=== PATIENT | female | born 1960 | race Caucasian/White ===

== ENCOUNTER 2017-10-01 13:02 | Emergency (ER) | payer OTHER ==
[2017-10-01 13:12] VITALS: BP 120/67; TEMP 99.3; BMI 20.9
[2017-10-01] MEDS ORDERED: ALBUTEROL SO4 2.5/IPRATROPIUM 0.5 INH SOL 3 ML VIAL.NEB. NEB ONE (14:18)
--- NOTE | 2017-10-01 14:20 | PDOC ---
Rapid Medical Evaluation Chief Complaint: Shortness of Breath Time Seen by Provider: 10/01/17 14:15 Medical Evaluation: Allergies Allergy/AdvReac Type Severity Reaction Status Date / Time No Known Allergies Allergy Verified 10/01/17 13:09 Vital Signs Temp Pulse Resp BP Pulse Ox 99.3 F 101 H 18 120/67 94 L 10/01/17 13:09 10/01/17 13:09 10/01/17 13:09 10/01/17 13:09 10/01/17 13:09 10/01/17 14:18 Pt. is a 57 y/o F who presents with two days of cough and shortness of breath and intermittent fevers for two days. Pt. states she usually gets pneumonia in the summer. Hx of relapsing remitting MS Exam: Fair aeration to the bases with course lung sounds on the right. ambulatory, afebrile Orders: Labs, CXR Pt. to proceed to main Ed for further evaluation Discharge Disposition - Discharge Dispostion Last Admission D/C Date: 02/12/15 - Referrals Referrals: Lucas Dominguez MD [Primary Care Provider] - - Patient Instructions - Post Discharge Activity
[2017-10-01 14:54] LABS: BASO % 0.4 % (0-2.0); EOS % 0.2 % (0-4.5); HEMATOCRIT 37.2 % (32.4-45.2); HEMOGLOBIN 12.3 GM/dL (10.7-15.3); LYMPH % 9.6 % (8-40); MCH 29.2 pg (25.7-33.7); MCHC 33.2 g/dl (32.0-36.0); MEAN CELL VOLUME 87.9 fl (80-96); MEAN PLT VOLUME 6.6 fl (7.5-11.1); NEUT % 83.8 % (42.8-82.8); PLATELET COUNT 257 K/MM3 (134-434); RBC 4.23 M/mm3 (3.60-5.2); RDW 13.2 % (11.6-15.6)
[2017-10-01 15:25] LABS: ALBUMIN 3.9 g/dl (3.4-5.0); ANION GAP 8 (8-16); BLOOD UREA NITROGEN 15 mg/dL (7-18); CALCIUM 8.6 mg/dL (8.5-10.1); CHLORIDE 104 mmol/L (98-107); CO2 26 mmol/L (21-32); CREATININE 0.7 mg/dL (0.55-1.02); GLUCOSE,RANDOM 105 mg/dL (74-106); POTASSIUM 4.3 mmol/L (3.5-5.1); SGOT/AST 18 U/L (15-37); SGPT/ALT 19 U/L (12-78); SODIUM 138 mmol/L (136-145)
[2017-10-01 15:26] LABS: ALK PHOS 70 U/L (45-117); BILIRUBIN,TOTAL 2.9 mg/dL (0.2-1.0); TOT PROT 7.2 g/dl (6.4-8.2)
[2017-10-01] MEDS ORDERED: ACETAMINOPHEN 325 MG TABLET (FP) PO ONE (15:46)
[2017-10-01] MEDS ORDERED: SODIUM CHLORIDE 1,000 ML IV STA (15:48)
[2017-10-01] MEDS ORDERED: ACETAMINOPHEN 325 MG TABLET (FP) ONE (16:16)
--- NOTE | 2017-10-01 16:21 | PDOC ---
Attending Attestation - Resident Resident Name: JohnathonLucas - ED Attending Attestation I have performed the following: I have examined & evaluated the patient, The case was reviewed & discussed with the resident, I agree w/resident's findings & plan - HPI HPI: 10/01/17 16:16 57y/o F MS p/w persistent cough/f/c in the setting of preceding URI. has h/o recurring pneumonia, no prior intubations/ICU admissions and often successfully treated as outpt. - Physicial Exam PE: 10/01/17 16:17 o2 97% on room air, HR 84 after tylenol extremely well appearing and comfortable, speaking full sentences, no tachypnea slightly decreased breath sounds R base, otherwise no wheeze or accessory muscle use. good air entry. heart regular, no edema ambulating comfortably without respiratory distress - Medical Decision Making 10/01/17 16:19 57y/o F MS with h/o pna p/w RLL pneumonia. well appearing, wbc 12, o2 sat wnl and VS otherwise normal. Despite her MS, she does not feel weak and is not fatiguing in her breathing whatsoever. She feels well, states this is her typical pna, and states she's been treated with outpt abx in the past under similar circumstances. no concerning findings mandating admission, will treat with levaquin course and prompt f/u with Dr. Dominguez
--- NOTE | 2017-10-01 16:40 | PDOC ---
History of Present Illness - General Chief Complaint: Shortness of Breath Stated Complaint: SOB Time Seen by Provider: 10/01/17 14:15 History Source: Patient Exam Limitations: No Limitations - History of Present Illness Initial Comments: 10/01/17 16:22 Patient is a 57F with history of MS (last on tecfidera one month ago) here today complaining of shortness of breath. She states that she had a cough, runny nose and irritated throat last week, then had a fever yesterday. Patient states that she has had pneumonia in the past with some requiring hospitalization, but no prior ICU stays or failures of outpatient treatment. Patient states that she's a little out of breath from baseline. Denies chest pain, vomiting. Past History - Past Medical History Allergies/Adverse Reactions: Allergies Allergy/AdvReac Type Severity Reaction Status Date / Time No Known Allergies Allergy Verified 10/01/17 13:09 Home Medications: Ambulatory Orders Dimethyl Fumarate [Tecfidera] 240 mg PO BID 02/10/15 Loratadine [Allergy Relief] 10 mg PO DAILY 02/10/15 Prednisone 10 mg PO DAILY 02/10/15 Cefuroxime Axetil [Ceftin] 500 mg PO BID #10 tablet 02/12/15 levoFLOXacin [Levaquin -] 750 mg PO DAILY #4 tablet 10/01/17 Anemia: No Asthma: No Cancer: No CVA: No COPD: No CHF: No HTN: No Other medical history: M.S - Surgical History Abdominal Surgery: Yes - Suicide/Smoking/Psychosocial Hx Smoking History: Never smoked Have you smoked in the past 12 months: No Information on smoking cessation initiated: No Hx Alcohol Use: No Drug/Substance Use Hx: No Substance Use Type: None Hx Substance Use Treatment: No Review of Systems - Review of Systems Comments:: 10/01/17 16:25 GENERAL/CONSTITUTIONAL: Positive for fever and chills. No weakness. HEAD, EYES, EARS, NOSE AND THROAT: No change in vision. No sore throat. CARDIOVASCULAR: No chest pain. Positive for shortness of breath RESPIRATORY: Positive for cough. Negative for wheezing, or hemoptysis. GASTROINTESTINAL: No nausea, vomiting, diarrhea or constipation. GENITOURINARY: No dysuria, frequency, or change in urination. MUSCULOSKELETAL: No joint or muscle swelling or pain. No neck or back pain. SKIN: No rash NEUROLOGIC: No headache, vertigo, loss of consciousness, or change in strength/ sensation. HEMATOLOGIC/LYMPHATIC: No anemia, easy bleeding, or history of blood clots. ALLERGIC/IMMUNOLOGIC: No hives or skin allergy. *Physical Exam - Vital Signs Last Vital Signs Temp Pulse Resp BP Pulse Ox 99.3 F 101 H 18 120/67 94 L 10/01/17 13:09 10/01/17 13:09 10/01/17 13:09 10/01/17 13:09 10/01/17 13:09 - Physical Exam Comments: 10/01/17 16:40 GENERAL: Awake, alert, and fully oriented, in no acute distress HEAD: No signs of trauma, normocephalic, atraumatic EYES: PERRLA, EOMI, sclera anicteric, conjunctiva clear ENT: Auricles normal inspection, hearing grossly normal, nares patent, oropharynx clear without exudates. Moist mucosa NECK: Normal ROM, supple, no lymphadenopathy, JVD, or masses LUNGS: No distress, speaks full sentences, +rhonchi in RLL HEART: Regular rate and rhythm, normal S1 and S2, no murmurs, rubs or gallops, peripheral pulses normal and equal bilaterally. ABDOMEN: Soft, nontender, normoactive bowel sounds. No guarding, no rebound. No masses EXTREMITIES: Normal inspection, Normal range of motion, no edema. No clubbing or cyanosis. NEUROLOGICAL: Cranial nerves II through XII grossly intact. Normal speech, normal gait, no focal sensorimotor deficits SKIN: Warm, Dry, normal turgor, no rashes or lesions noted. ED Treatment Course - LABORATORY CBC & Chemistry Diagram: 10/01/17 14:46 10/01/17 14:46 - ADDITIONAL ORDERS Additional order review: Laboratory Results 10/01/17 14:46 Sodium 138 Potassium 4.3 Chloride 104 Carbon Dioxide 26 Anion Gap 8 BUN 15 Creatinine 0.7 Creat Clearance w eGFR > 60 Random Glucose 105 Calcium 8.6 Total Bilirubin 2.9 H D AST 18 ALT 19 Alkaline Phosphatase 70 Total Protein 7.2 Albumin 3.9 10/01/17 14:46 RBC 4.23 MCV 87.9 MCHC 33.2 RDW 13.2 MPV 6.6 L Neutrophils % 83.8 H Lymphocytes % 9.6 D Monocytes % 6.0 Eosinophils % 0.2 Basophils % 0.4 - Medications Given in the ED: ED Medications Discontinued Medications Generic Name Dose Route Start Last Admin Trade Name Eldon PRN Reason Stop Dose Admin Acetaminophen 650 mg 10/01/17 15:46 10/01/17 16:17 Tylenol - PO 10/01/17 15:47 650 mg ONCE ONE Administration Albuterol/Ipratropium 1 amp 10/01/17 14:18 10/01/17 14:53 Duoneb - NEB 10/01/17 14:19 1 amp ONCE ONE Administration Medical Decision Making - Medical Decision Making 10/01/17 16:40 Patient is 57F with history of MS and prior PNA here today complaining of shortness of breath. Vital signs notable for mild tachycardia. Patient is not in any respiratory distress, sating 98% on room air. Patient endorses not eating much in the past. Patient is tolerating PO. CURB65 score is 0. Patient subjectively looks well. Dr Dominguez, PCP, contacted, close follow up arranged. Patient given IV fluid bolus. Will reassess HR and discharge. 10/01/17 16:54 Tachycardia resolved. Given levaquin. Return precautions given. *DC/Admit/Observation/Transfer Diagnosis at time of Disposition: Pneumonia - Discharge Dispostion Condition at time of disposition: Good Decision to Admit order: No - Prescriptions Prescriptions: levoFLOXacin [Levaquin -] 750 mg PO DAILY #4 tablet - Referrals Referrals: Lucas Dominguez MD [Primary Care Provider] - - Patient Instructions Printed Discharge Instructions: DI for Pneumonia -- Adult Additional Instructions: Please return if you have any new, worsening or concerning symptoms, especially if your condition starts worsening with increasing shortness of breath or if you cannot take your medications. Please follow up with your primary care physician tomorrow. Dr Dominguez is aware of your ED visit and should see you in the next two days. - Post Discharge Activity
[2017-10-01 17:25] VITALS: PULSE 99
== END 2017-10-01 17:27 | disposition home or self-care (01) ==
LOC: JER 13:02
PROC: 3E0337Z Introduction of Electrolytic and Water Balance Substance into Peripheral Vein, Percutaneous Approach (ICD-10-PCS; principal; 2017-10-01)
PROC: 3E0F7GC Introduction of Other Therapeutic Substance into Respiratory Tract, Via Natural or Artificial Opening (ICD-10-PCS; 2017-10-01)
DX: J18.9 Pneumonia, unspecified organism (principal); G35 Multiple sclerosis
CPT/HCPCS: 36415; 71046-TC-FY; 80053; 85025; 87040; 94640; 96360; 99283-25; J7030; J7620

== ENCOUNTER 2018-01-21 18:35 | Emergency (ER) | payer OTHER ==
[2018-01-21 18:40] VITALS: BP 118/82; PULSE 89; TEMP 98.9; BMI 20.7
[2018-01-21] MEDS ORDERED: ALBUTEROL SO4 2.5/IPRATROPIUM 0.5 INH SOL 3 ML VIAL.NEB. NEB ONE ×2 (19:27→19:54)
[2018-01-21] MEDS ORDERED: AZITHROMYCIN 500 MG TABLET PO ONE (19:27)
--- NOTE | 2018-01-21 19:27 | PDOC ---
History of Present Illness - History of Present Illness Initial Comments: 01/21/18 19:41 Patient is a 57 year old female with a significant past medical history of M.S, who presents to the ED with complaints of wheezing that she states began x5 days ago on . Patient reports experiencing gradual onset of wheezing that she states has increased over time. She reports experiencing associated symptoms of fever that was recorded at 100.4 yesterday. As per patient's patient was diagnosed with pneumonia x3 months ago, prompting them to come into the ED for further evaluation as they became worried she developed it once again. Denies chest pain, Sob. Denies nausea, vomiting. Denies chills. Denies contact with sick individuals, out of state travelling. Denies any other symptoms. Allergies: NKDA Social history: Lives with . No smoking. No alcohol. No illicit drugs. Surgical history: Abdominal surgery. PMD: Dr. Dominguez Adult ROS General: No fevers or chills, no weakness, no weight loss HEENT: No change in vision. No sore throat, No ear pain Cardiovascular: No chest pain or shortness of breath Respiratory:+Wheezing. No cough. Gastrointestinal: No nausea, vomiting, diarrhea or constipation, No rectal bleeding Genitourinary: No dysuria, hematuria, or frequency Musculoskeletal: No joint or muscle pain or swelling Neurologic: No headache, vertigo, dizziness or loss of consciousness Psychiatric: No depression Skin: No rashes or easy bruising Endocrine: No increased thirst or abnormal weight change Allergic: No skin or latex allergy All other systems reviewed and normal Adult PE General: Well-nourished well-developed individual, no acute distress HEENT: Throat: Normal, tonsils normal, no erythema or exudate Neck: Supple, no meningeal signs, no lymphadenopathy Eyes:Pupils equal reactive and round, extraocular motion intact Chest: Nontender to palpation Cardiac: S1-S2 normal, regular rate and rhythm, no murmurs rubs or gallops Respiratory: +Mild end of inspiratory phase wheezing. No expiratory wheezing. Extremities: Warm, dry, no cyanosis, clubbing, or edema Skin: No rashes Neuro: Alert and oriented x3, nonfocal exam, grossly intact, normal gait Psych: Normal mood and affect <Rahat Jordan - Last Filed: 01/21/18 19:41> - General History Source: Patient Exam Limitations: No Limitations - History of Present Illness Initial Comments: 01/21/18 19:38 A portion of this note was documented by scribe services under my direction. I have reviewed the details of the note, within reason, and agree with the documentation. The case summary and management plan written by me. Assessment plan: This is a 57-year-old female with multiple sclerosis who comes in complaining of fever cough and congestion. Patient has productive cough of whitish phlegm. Patient is afebrile in the emergency room and her O2 sat is 100 sent on room air however she is at risk for pneumonia. I did a chest x-ray That was read by me as no acute infiltrate or pathology. Patient did have some end of respiratory phase wheezing but no expiratory wheezing so I will gave her a DuoNeb. Patient has an albuterol metered-dose inhaler at home that she can use as well but has not been using her she thought it was a steroid inhaler. Patient also started on azithromycin as a chest x-ray can lag behind the clinical exam. Patient discharged home will follow-up with her primary care doctor <Urszula Bunch I - Last Filed: 01/21/18 20:21> - General Chief Complaint: Cold Symptoms Stated Complaint: cold Time Seen by Provider: 01/21/18 19:08 Past History <Rahat Jordan - Last Filed: 01/21/18 19:41> - Past Medical History Anemia: No Asthma: No Cancer: No CVA: No COPD: No CHF: No HTN: No - Surgical History Abdominal Surgery: Yes - Suicide/Smoking/Psychosocial Hx Smoking History: Never smoked Have you smoked in the past 12 months: No Hx Alcohol Use: No Drug/Substance Use Hx: No Substance Use Type: None Hx Substance Use Treatment: No <Urszula Bunch I - Last Filed: 01/21/18 20:21> - Past Medical History Allergies/Adverse Reactions: Allergies Allergy/AdvReac Type Severity Reaction Status Date / Time No Known Allergies Allergy Verified 01/21/18 18:36 Home Medications: Ambulatory Orders NK [No Known Home Medication] 01/21/18 *Physical Exam - Vital Signs Last Vital Signs Temp Pulse Resp BP Pulse Ox 98.9 F 89 18 118/82 100 01/21/18 18:35 09/18/18 18:35 01/21/18 18:35 01/21/18 18:35 01/21/18 18:35 <Rahat Jordan - Last Filed: 01/21/18 19:41> - Vital Signs Last Vital Signs Temp Pulse Resp BP Pulse Ox 98.9 F 89 18 118/82 100 01/21/18 18:35 01/21/18 18:35 01/21/18 18:35 01/21/18 18:35 01/21/18 18:35 <Urszula Bunch I - Last Filed: 01/21/18 20:21> *DC/Admit/Observation/Transfer - Attestations Scribe Attestion: 01/21/18 19:41 Documentation prepared by Rahat Jordan, acting as outside medical sales representative for Urszula Bunch MD. <Rahat Jordan - Last Filed: 01/21/18 19:41> - Discharge Dispostion Decision to Admit order: No <Urszula Bunch I - Last Filed: 01/21/18 20:21> Diagnosis at time of Disposition: Bronchitis, Wheezing - Discharge Dispostion Disposition: HOME Condition at time of disposition: Stable - Patient Instructions Additional Instructions: You can use your inhaler one or 2 puffs every 4-6 hours as needed for wheezing. Take azithromycin 1 tablet a day for the next 4 days. You given the first dose tonight so taken next dose tomorrow night. Return to the emergency department immediately with ANY new, persistent or worsening symptoms. Continue any medications as previously prescribed by your physician. You should follow up with your primary doctor as soon as possible regarding today's emergency department visit. . Please make sure your doctor reviews the results of your emergency evaluation. Thank you for coming to the Emergency Department today for your care. It was a pleasure to see you today. Please note that your evaluation is INCOMPLETE until you follow-up with your doctor.
[2018-01-21] MEDS ORDERED: AZITHROMYCIN 250 MG TABLET ONE (19:54)
== END 2018-01-21 20:28 | disposition home or self-care (01) ==
LOC: FER 18:35
PROC: 3E0F7GC Introduction of Other Therapeutic Substance into Respiratory Tract, Via Natural or Artificial Opening (ICD-10-PCS; principal; 2018-01-21)
DX: J40 Bronchitis, not specified as acute or chronic (principal); R06.2 Wheezing; G35 Multiple sclerosis
CPT/HCPCS: 71046-TC-FY; 99281-25; J7620